=== PATIENT | male | born 1990 | race African-American/Black ===

== ENCOUNTER 2017-09-15 16:03 | Emergency (ER) | payer OTHER ==
[~2017-09-15] VITALS: Ht 172.7 cm; Wt 90.9 kg
[2017-09-15 16:05] VITALS: BP 156/97; PULSE 83; TEMP 98.4
== END 2017-09-15 17:26 | disposition home or self-care (01) ==
LOC: COL.ER 16:03
DX: M54.32 Sciatica, left side (principal); I10 Essential (primary) hypertension
CPT/HCPCS: J1885

== ENCOUNTER 2017-10-29 11:28 | Emergency (ER) | payer MEDICAID ==
[~2017-10-29] VITALS: Ht 172.7 cm; Wt 86.4 kg
[2017-10-29 11:31] VITALS: BP 138/83; TEMP 101.4
[2017-10-29 12:17] LABS: INFLUENZA A NEGATIVE; INFLUENZA B NEGATIVE
[2017-10-29] MEDS ORDERED: TAMIFLU 75MG75 MG PO (12:35)
[2017-10-29 12:42] VITALS: PULSE 116
== END 2017-10-29 12:43 | disposition home or self-care (01) ==
LOC: COL.ER 11:28
PROVIDERS: Physician Assistant
DX: J11.1 Influenza due to unidentified influenza virus with other respiratory manifestations (principal)

== ENCOUNTER 2018-03-06 11:27 | Emergency (ER) | payer MEDICAID ==
[~2018-03-06] VITALS: Ht 170.2 cm; Wt 84.9 kg
[~2018-03-06 11:27] MED LIST: TAMIFLU 75MG75 MG PO
[2018-03-06 11:31] VITALS: BP 168/97; TEMP 97.6
[2018-03-06] MEDS ORDERED: ADDERALL20 MG PO (11:54)
[2018-03-06] MEDS ORDERED: MAGIC MOUTHWASH1 M1 PO (13:10)
[2018-03-06 13:17] VITALS: PULSE 79
== END 2018-03-06 13:18 | disposition home or self-care (01) ==
LOC: COL.ER 11:27
DX: K14.9 Disease of tongue, unspecified (principal); F90.9 Attention-deficit hyperactivity disorder, unspecified type

== ENCOUNTER 2018-12-31 15:42 | Emergency (ER) | payer MEDICAID ==
[~2018-12-31] VITALS: Ht 172.7 cm; Wt 90.9 kg
[~2018-12-31 15:42] MED LIST changes: +ADDERALL20 MG PO; +MAGIC MOUTHWASH1 M1 PO
[2018-12-31 16:09] VITALS: BP 134/83; TEMP 98.8
[2018-12-31 17:17] VITALS: PULSE 86
== END 2018-12-31 17:18 | disposition home or self-care (01) ==
LOC: COL.ER 15:42
DX: S93.401A Sprain of unspecified ligament of right ankle, initial encounter (principal); X50.0XXA Overexertion from strenuous movement or load, initial encounter; Y93.67 Activity, basketball

== ENCOUNTER 2019-06-25 22:26 | Emergency (ER) | payer MEDICAID ==
[~2019-06-25] VITALS: Ht 172.7 cm; Wt 86.4 kg
[2019-06-25 22:34] VITALS: PULSE 87; TEMP 98.6
[2019-06-25] MEDS ORDERED: AMOXICILLIN875 MG PO ×2 (23:15)
[2019-06-25] MEDS ORDERED: AMOXICILLIN 8751 TAB PO (23:20)
[2019-06-25 23:32] VITALS: BP 148/96
== END 2019-06-25 23:36 | disposition home or self-care (01) ==
LOC: COL.ER 22:26
DX: J02.9 Acute pharyngitis, unspecified (principal)
CPT/HCPCS: J8540